=== PATIENT | female | born 1950 | race African-American/Black ===

== ENCOUNTER 2021-07-14 08:27 | Emergency (ER) | payer MEDICARE, MEDICAID ==
[~2021-07-14] VITALS: Ht 160 cm; Wt 63.5 kg
[2021-07-14 08:34] VITALS: BP 100/68
--- NOTE | 2021-07-14 08:35 | NUR ---
70 Y/O FEMALE BIBA FROM [facility] C//O PAIN IN THE BACK 10/20 AFTER FALL LAST NIGHT, DENIES ANY ALOC, HITTING HEAD, STATED THEY ARE TAKING PRADAXA. A/OX4, WITH BASELINE LEFT SIDED DEFICIT. PT HAS DIFFICULTY MOVING LEFT SIDE OF HER BODY NKA PMH: DEPRESSION, CVA, LEFT SIDED DEFICIT
[2021-07-14] MEDS ORDERED: HYDROcodone/APAP 5/325 MG 1 TAB TAB PO ONE (08:55)
--- NOTE | 2021-07-14 09:05 | NUR ---
RAD AT BEDSIDE
--- NOTE | 2021-07-14 09:55 | NUR ---
RAD MADE AWARE OF PT DECREASE IN PAIN
--- NOTE | 2021-07-14 10:04 | NUR ---
RAD AT BEDSIDE
--- NOTE | 2021-07-14 10:31 | NUR ---
DR SLATER MADE AWARE OF PT'S BP 78/55, PT IS A/OX4, DENIES ANY DIZZINESS, GIVEN WATER AND FOOD. RAD AT BEDSIDE
--- NOTE | 2021-07-14 10:51 | NUR ---
SLING WAS PLACED ON PATIENT'S LEFT ARM. ERMD NOTIFIED
--- NOTE | 2021-07-14 11:41 | NUR ---
OFFERED SANDWICHES, TOLERATED WELL
--- NOTE | 2021-07-14 11:53 | NUR ---
SPOKE TO CHILD PETRA PINEDAMARLEN MOTHER'S STATUS, ASKED ABOUT MOTHER/S BLOOD PRESSURE STATED THAT HER NORMAL BLOOD PRESSURE IS AROUND 120/70, HOWEVER, SHE GOES HYPOTENSIVE WHEN GIVEN LISINOPRIL, BP REACHING AROUND 90/50.
--- NOTE | 2021-07-14 11:56 | NUR ---
AMENDED HISTORY: HTN
[2021-07-14] MEDS ORDERED: ACET-8386 PO (12:50)
[2021-07-14] MEDS ORDERED: NACL 0.9% 1,000 ML IV ONE (13:25)
--- NOTE | 2021-07-14 13:26 | NUR ---
PT STATED THAT HER BLOOD PRESSURE IN THE RIGHT ARM IS ALWAYS LOW, BLOOD PRESSURE WAS 85/55 IN THE LEFT ARM. PT STATED THAT THEY ALWAYS TAKE HER BLOOD PRESSURE IN THE LEFT ARM, HER STROKE SIDE, BLOOD PRESSURE IS NOT 125/79. DR SLATER MADE AWARE
--- NOTE | 2021-07-14 14:07 | NUR ---
RE[facility] CALL[facility] REGARD[facility] PT CONDITION
--- NOTE | 2021-07-14 15:02 | NUR ---
Patient discharged with v/s stable. Written and verbal after care instructions ABOUT HUMERUS FRACTURE given and explained. Patient alert, oriented and verbalized understanding of instructions. Ambulance Transport with to senior living [facility]. All questions addressed prior to discharge. ID band removed. Patient advised to follow up with PMD. Rx of NORCO 5-325 given. Patient educated on indication of medication including possible reaction and side effects. Opportunity to ask questions provided and answered.
[2021-07-14 15:04] VITALS: BP 140/97
== END 2021-07-14 15:02 | disposition home or self-care (01) ==
LOC: MED 08:27
DX: S42.292A Other displaced fracture of upper end of left humerus, initial encounter for closed fracture (principal); R07.81 Pleurodynia; Z86.73 Personal history of transient ischemic attack (TIA), and cerebral infarction without residual deficits; Z79.899 Other long term (current) drug therapy; W19.XXXA Unspecified fall, initial encounter; Y93.89 Activity, other specified; Y92.89 Other specified places as the place of occurrence of the external cause; Y99.8 Other external cause status
CPT/HCPCS: 71101; 73060; 73090; 81002; 99284; J7030